=== PATIENT | male | born 1960 | race Hispanic/Latino ===

== ENCOUNTER 2019-01-03 11:00 | Inpatient (IN) | payer OTHER ==
[~2019-01-03] VITALS: Ht 185.4 cm; Wt 97.5 kg
--- OUTSIDE RECORDS SUMMARY | 2019-01-03 11:03 | XMS REPORT | Clinical Summary ---
Author Author JAMI [facility] Organization [facility] Address Unknown Phone Unavailable Care Team Providers Care Workers Compensation Paralegal Name Role Phone PCP Unavailable Allergies No Known Allergies Medications Not on file Active Problems Problem Noted Date Thyroid cancer 01/21/2016 Social History Date Tobacco Use Types Packs/Day Years Used Never Assessed Sex Assigned at Date Recorded Not on file Industry Job Start Date Occupation Not on file Not on file Not on file Travel End Travel History Travel Start No recent travel history available. Last Filed Vital Signs Not on file Plan of Treatment Not on file Results Not on fileafter 01/02/2018 Insurance Payer Benefit Subscriber ID Type Phone Address Plan / Group [employer] FED xxxxxxxxx O [phone] [address] [place] [address]
[2019-01-03] MEDS ORDERED: PIPER-TAZ 3.375 GM 50 ML IV ONE (11:30)
[2019-01-03] MEDS ORDERED: VITAMIN D250000 UNIT (11:46)
[2019-01-03] MEDS ORDERED: SYNTHROID125 MCG (11:46)
--- OUTSIDE RECORDS SUMMARY | 2019-01-03 11:48 | XMS REPORT | Clinical Summary ---
Author Author JAMI [facility] Organization [facility] Address Unknown Phone Unavailable Care Team Providers Care Heating Element Builder Name Role Phone PCP Unavailable Allergies No [...] [employer] FED xxxxxxxxx O [phone] [address] [place] [address]
[2019-01-03 11:53] LABS: BASOPHILS % 0.2 % (0.0-1.0); EOSINOPHILS # (AUTO) 0.1 (0.0-0.4); EOSINOPHILS % 0.5 % (0.0-6.0); HEMATOCRIT 43.5 % (38.2-49.6); HEMOGLOBIN 15.3 g/dL (14.0-18.0); LYMPHOCYTES # (AUTO) 1.1 (1.0-3.2); LYMPHOCYTES % 9.6 % (18.0-39.1); MEAN CORPUSCULAR HEMOGLOBIN 30.9 pg (28-32); MEAN CORPUSCULAR HGB CONC 35.2 g/dL (31-35); MEAN CORPUSCULAR VOLUME 87.9 fL (81-99); MONOCYTES # (AUTO) 0.7 (0.2-0.8); NEUTROPHILS # (AUTO) 9.5 (2.1-6.9); PLATELET COUNT 214 x10e3/uL (140-360); RED BLOOD COUNT 4.95 x10e6/uL (4.3-5.7); RED CELL DISTRIBUTION WIDTH 12.6 % (11.7-14.4)
[2019-01-03 12:08] LABS: ANION GAP 14.9 mmol/L (8-16); BLOOD UREA NITROGEN 14 mg/dL (7-26); BUN/CREATININE RATIO 16 (6-25); CARBON DIOXIDE 24 mmol/L (22-29); CHLORIDE 99 mmol/L (98-107); CREATININE, SERUM 0.88 mg/dL (0.72-1.25); EST GLOMERULAR FILTRATION RATE > 60 ML/MIN (60-); GLUCOSE 110 mg/dL (74-118); POTASSIUM 3.9 mmol/L (3.5-5.1); SODIUM 134 mmol/L (136-145)
[2019-01-03] MEDS: SODIUM CHLORIDE 0.9% 1000ML 1,000 ML IV SCH ×2 (12:10→20:11)
[2019-01-03] MEDS: PIPER-TAZ 3.375 GM 50 ML IV SCH ×2 (12:10→20:10)
--- NOTE | 2019-01-03 12:22 | NUR ---
PATIENT TO CT AT THIS TIME
[2019-01-03 12:30] LABS: CLARITY,URINE SL CLOUDY (CLEAR); COLOR,URINE YELLOW (YELLOW); LEUKOCYTE ESTERASE ,URINE NEGATIVE (NEGATIVE); NITRITE,URINE NEGATIVE (NEGATIVE); PROTEIN,URINE DIPSTICK TRACE (NEGATIVE)
[2019-01-03 12:31] LABS: BILIRUBIN,URINE NEGATIVE (NEGATIVE); KETONES,URINE 3+ (NEGATIVE); URINE UROBILINOGEN 0.2 mg/dL (0.2 - 1)
[2019-01-03 12:44] LABS: RBC,URINE 0-5 /HPF (0-5)
--- NOTE | 2019-01-03 13:06 | NUR ---
DR TERRY BEDSIDE TO SEE PATIENT AT THIS TIME - SURGERY DISCUSSED AND ALL QUESTIONS ANSWERED. DISCUSSED PLANNED PROCEDURE, ALL QUESTIONS ANSWERED, PATENT VOICED NO CONCERNS AT THIS TIME. CONSENT SIGNED AND PLACED ON CHART
[2019-01-03 13:27] VITALS: BP 141/79
--- NOTE | 2019-01-03 13:27 | NUR ---
Received pt from ER at this time. Pt admitted for scrotal abscess. Pt is aox4 and able to verbalize needs. Denies any pain at this time. Pt is NPO for procedure scheduled at 1600. Pt is ambulatory. Pt is afebrile.
--- NOTE | 2019-01-03 13:50 | Diagnostic Imaging Report ---
EXAMINATION: CT of the abdomen and pelvis with contrast. TECHNIQUE: Helical CT images of the abdomen and pelvis were performed from the lung bases to the lesser trochanters after the intravenous administration of 100 cc of Omnipaque 300 and the oral administration of none. Coronal and sagittal reformatted images were obtained.Dose modulation, iterative reconstruction, and/or weight based adjustment of the mA/kV was utilized to reduce the radiation dose to as low as reasonably achievable. COMPARISON: None. CLINICAL HISTORY:Abdominal pain, scrotal abscess DISCUSSION: ABDOMEN/PELVIS: LOWER THORAX:Unremarkable. HEPATOBILIARY: No focal hepatic lesions. No intra-or extrahepatic biliary ductal dilation. The gallbladder is normal. SPLEEN: No splenomegaly. PANCREAS: No focal masses or ductal dilatation. ADRENALS: No adrenal nodules. KIDNEYS/URETERS: No hydronephrosis, stones, or solid mass lesions. PELVIC ORGANS/BLADDER: The bladder is normal. PERITONEUM/RETROPERITONEUM: No free air or fluid. LYMPH NODES: Reactive lymph nodes. VESSELS: The celiac trunk,superior and inferior mesenteric and bilateral renal arteries are patent The portal, superior mesenteric and splenic veins are patent. GI TRACT: No obstruction. Colonic diverticulosis without inflammatory change. Appendix normal. BONES AND SOFT TISSUE: No bony destructive lesions. Skin thickening and inflammatory change throughout the scrotum. 3 cm fluid collection. IMPRESSION: Cellulitis and scrotal infection with 3 cm abscess. Diverticulosis without inflammatory change. Signed by: Dr. Pedro Cleaning M.D. on 01/03/2019 1:47 PM
[2019-01-03 13:56] VITALS: BP 141/79
[2019-01-03] MEDS ORDERED: MIDAZOLAM HCL 2 MG/2 ML VIAL ONE (14:15)
[2019-01-03] MEDS ORDERED: FENTANYL CITRATE/PF 100MCG/2 ML INJ ONE (14:15)
[2019-01-03] MEDS ORDERED: ACETAMINOPHEN 325 MG TAB PO PRN (14:15)
[2019-01-03] MEDS ORDERED: ONDANSETRON HCL INJ 2MG/ML 2ML 2 MG/ML VIAL IV PRN (14:15)
[2019-01-03] MEDS ORDERED: VANCOMYCIN 1GM/NS 250 ML 250 ML IV ONE (14:15)
[2019-01-03] MEDS ORDERED: IOPAMIDOL 370 MG/ML 200 ML INFUS..BTL INJ ONE (14:34)
[2019-01-03] MEDS ORDERED: SODIUM CHLORIDE 0.9% 50ML 50 ML ONE (14:34)
[2019-01-03] MEDS ORDERED: HYDROCODONE/APAP 10MG-325MG TAB PO PRN (17:15)
--- NOTE | 2019-01-03 17:30 | NUR ---
Pt returned from procedure with Dr. Vaughn at this time. Pt is awake aox4 and able to verbalize needs. Denies any pain at this time. Pt had I/D of scrotal abscess and was told it was packed iodoform packing and covered with 4x4 and he has on mesh underwear. No bleeding noted to scrotum at this time.
[2019-01-03] MEDS: DEXTROSE 5%/0.45% SOD CHL 1,000 ML IV SCH (17:48)
[2019-01-03 18:36] VITALS: BP 124/77
[2019-01-03] MEDS ORDERED: DEXAMETHASONE SOD PHOS INJ 4 MG/ML VIAL ONE (19:01)
[2019-01-03] MEDS ORDERED: ONDANSETRON HCL INJ 2MG/ML 2ML 2 MG/ML VIAL ONE (19:01)
[2019-01-03] MEDS ORDERED: PROPOFOL IV EMULSION 10 MG/ML 20 ML VIAL ONE (19:01)
[2019-01-03] MEDS ORDERED: SEVOFLURANE INHAL SOLN 250 ML PEN BTL ONE (19:01)
[2019-01-03] MEDS ORDERED: LIDOCAINE HCL 2% LOCAL INJ 5 ML SDV VIAL INJ ONE (19:01)
[2019-01-03 20:00] VITALS: BP 109/61
--- NOTE | 2019-01-03 20:28 | Consultation ---
DATE OF CONSULTATION: REASON FOR CONSULTATION: Scrotal abscess. HISTORY: A 58-year-old male who approximately four or five days ago also noticed a little pimple in his scrotum. He pinched it, tried to drain it, nothing came out and subsequent to that, he began to have increasing pain. He tried to squeeze it again, it got worse and shows up in the emergency room today with an abscess that begins on the ventral aspect of the penis at the penoscrotal junction, goes down the scrotum and goes through the septum towards the back of the scrotum and the base of the penis. This is on physical examination and also on CT scan that was done and that I had the opportunity to see. PAST MEDICAL HISTORY: Essentially negative, only has thyroid issues. MEDICATIONS: Synthroid. ALLERGIES TO DRUGS: None. SOCIAL HISTORY: , not sexually active, no children. PREVIOUS SURGERIES: None. PHYSICAL EXAMINATION: : Penis is uncircumcised. Testicles descended. No evidence of any inguinal hernias. RECTAL: There is no expansion of this abscess into the perineum. Rectum feels fine. Scrotum is as described above. IMPRESSION: Scrotal abscess. RECOMMENDATION: Drainage as soon as possible. The patient had to be started on Zosyn, has had blood cultures. I have talked to the patient about these abscesses, the good thing is he is not diabetic, but keep in mind that these abscesses when drained, they may need a second-look drainage and some of the skin may become necrotic and may need to be excised. He understands that at best, he will be in the hospital 3 to 4 days or longer. He understands that fully well because I explained it very clearly to him. I will be scheduling him for today and we will proceed with the treatment as planned. MD CHANO Aparicio/LILY /[id number]
--- NOTE | 2019-01-03 22:18 | Operative Report ---
DATE OF PROCEDURE: 01/03/2019 SURGEON: Jefferson Vaughn MD PREOPERATIVE DIAGNOSIS: Scrotal abscess. POSTOPERATIVE DIAGNOSIS: Scrotal abscess. OPERATION PERFORMED: Incision, drainage, culture and excision of necrotic and flagellation tissue. ANESTHESIOLOGIST: Dr. Campbell. ANESTHESIA: General. DESCRIPTION OF PROCEDURE: With the patient under satisfactory general anesthesia, the patient was placed in the supine position on the operating table. Genitalia and lower abdomen were prepped with Betadine soap and solution and draped in usual manner. A stab incision was made in the middle of the abscess, copious pus came out and it was cultured; aerobic, anaerobic, and for cocci. Copious irrigation was made with Betadine and sterile water. Necrotic skin was excised using a knife. Flagellation deep on the scrotum next to the left side of the penis was excised. Packing was done with quarter-inch iodoform. Three sutures were placed on the incision, the defect, to bring the edges of the corners together and allow the Iodoform to stay in place. Once that was done, fluffs were placed in together with a tiny mesh and the patient was taken to the recovery room in satisfactory condition. ESTIMATED BLOOD LOSS: 10-20 mL. COUNTS: Sponge, needle count, instrument were correct. The patient tolerated the procedure well and went to recovery room in satisfactory condition. I discussed with the family the findings and the expectations. Jefferson Vaughn MD RRG/MODL /[id number]
[2019-01-04] VITALS (8 sets, daily range): BP systolic 105–124; BP diastolic 59–75
[2019-01-04] MEDS: SODIUM CHLORIDE 0.9% 1000ML 1,000 ML IV SCH (03:24)
[2019-01-04] MEDS: DEXTROSE 5%/0.45% SOD CHL 1,000 ML IV SCH (03:33)
[2019-01-04] MEDS: PIPER-TAZ 3.375 GM 50 ML IV SCH ×3 (04:14→22:35)
[2019-01-04 05:32] LABS: BASOPHILS % 0.3 % (0.0-1.0); EOSINOPHILS # (AUTO) 0.1 (0.0-0.4); EOSINOPHILS % 1.1 % (0.0-6.0); HEMATOCRIT 38.6 % (38.2-49.6); HEMOGLOBIN 13.5 g/dL (14.0-18.0); LYMPHOCYTES # (AUTO) 1.4 (1.0-3.2); MEAN CORPUSCULAR HEMOGLOBIN 30.9 pg (28-32); MEAN CORPUSCULAR VOLUME 88.3 fL (81-99); MONOCYTES # (AUTO) 0.7 (0.2-0.8); MONOCYTES % 7.2 % (4.4-11.3); NEUTROPHILS # (AUTO) 7.2 (2.1-6.9); NEUTROPHILS % 76.2 % (38.7-80.0); PLATELET COUNT 207 x10e3/uL (140-360); RED BLOOD COUNT 4.37 x10e6/uL (4.3-5.7); RED CELL DISTRIBUTION WIDTH 12.5 % (11.7-14.4)
[2019-01-04 05:51] LABS: ALANINE AMINOTRANSFERASE 14 IU/L (0-55); ALBUMIN 2.9 g/dL (3.5-5.0); ALBUMIN/GLOBULIN RATIO 0.9 (0.8-2.0); ALKALINE PHOSPHATASE 63 IU/L (40-150); ANION GAP 9.9 mmol/L (8-16); BLOOD UREA NITROGEN 12 mg/dL (7-26); BUN/CREATININE RATIO 14 (6-25); CALCIUM 8.3 mg/dL (8.4-10.2); CARBON DIOXIDE 24 mmol/L (22-29); CHLORIDE 103 mmol/L (98-107); CREATININE, SERUM 0.84 mg/dL (0.72-1.25); EST GLOMERULAR FILTRATION RATE > 60 ML/MIN (60-); GLUCOSE 111 mg/dL (74-118); MAGNESIUM 2.3 MG/DL (1.3-2.1); PHOSPHORUS 3.3 MG/DL (2.3-4.7); POTASSIUM 3.9 mmol/L (3.5-5.1); SODIUM 133 mmol/L (136-145)
--- NOTE | 2019-01-04 06:38 | NUR ---
Patient alert and awake reports no pain. Is requesting to eat, but I told him to not have anything for breakfast until he talks to the DR. as he is having a procedure today. Otherwise, comfortable and denies pain, N/V. IV patent. Bed low, wheels locked and call light within reach.
--- NOTE | 2019-01-04 06:40 | NUR ---
The patient is laying in bed, sleeping but easy to arouse. IV patent, Dressing in scrotum in place with small drainage. Patient states he has no pain. Bed low, wheels locked and call light within reach.
--- NOTE | 2019-01-04 07:27 | NUR ---
PATIENT IN BED RESTING WITH EYES CLOSED, NO RESPIRATORY DISTRESS OBSERVED. DRESSING TO SROTUM WITH MODERATE AMOUNT OF SEROSANGUINEOUS DRAINAGE. BED IN LOWER POSITION, CALL LIGHT AT REACH.
--- NOTE | 2019-01-04 11:23 | NUR ---
CALL RECEIVED FROM DR TERRY REQUESTING SUPPLIES FOR BEDSIDE DRESSING CHANGE. SUPPLIES PROVIDED, AWAITING FOR MD. PATIENT AWARE.
--- NOTE | 2019-01-04 16:23 | NUR ---
DR TERRY IN TO SEE PATIENT, DRESSING CHANGED TO SCROTUM. PATIENT IN BED WITH CALL LIGHT AT REACH.
[2019-01-04] MEDS ORDERED: ONDANSETRON HCL 4 MG ORAL DISINTEGRATING TAB PO PRN ×2 (17:30)
[2019-01-04] MEDS: LACTOBACILLUS ACIDOPHILUS CAPSULE PO SCH (17:32)
[2019-01-05] VITALS (7 sets, daily range): BP systolic 101–111; BP diastolic 58–66
[2019-01-05] MEDS: PIPER-TAZ 3.375 GM 50 ML IV SCH (04:19)
--- NOTE | 2019-01-05 07:35 | NUR ---
Patient alert and responsive, no resp distress, VSS and OOB to bathroom with minimal assistance, call light within reach and will monitor.
[2019-01-05] MEDS: LEVOTHYROXINE SODIUM 125 MCG TAB PO SCH ×2 (08:00→09:00)
[2019-01-05] MEDS: LACTOBACILLUS ACIDOPHILUS CAPSULE PO SCH ×2 (08:30→16:36)
--- NOTE | 2019-01-05 10:31 | NUR ---
Patient alert and responsive, wound culture growing staph and strep and no resistance orgs noted, will expect details by tomorrow. Patient will be switched to Vanco by attending as aware of cultures.
[2019-01-05] MEDS: VANCOMYCIN 1GM/NS 250 ML 250 ML IV SCH ×2 (10:45→21:45)
[2019-01-05] MEDS ORDERED: SODIUM CHLORIDE 0.9% 250ML 250 ML ONE (15:30)
--- NOTE | 2019-01-05 21:10 | NUR ---
PATIENT IS ALERT AND SHOWS NO SIGNS OF DISTRESS. STILL AWAITING RESULTS OF WOUND CULTURE IT IS STILL PENDING. MEDICATION IS SWITCHED TO VANCOMYCIN, FAMILY IS IN ROOM. CALL LIGHT WITHIN EASY REACH, WILL CONTINUE TO MONITOR.
[2019-01-06 00:35] VITALS: BP 140/63
[2019-01-06 05:13] VITALS: BP 156/75
--- NOTE | 2019-01-06 07:29 | NUR ---
PATIENT IN BED RESTING WITH NO RESPIRATORY DISTRESS. DRESSING TO SCROTUM WITH SMALL AMOUNT OF SEROSANGUINEOUS DRAINAGE. DENIED PAIN AT THIS TIME. BED IN LOWER POSITION, CALL LIGHT AT REACH.
[2019-01-06 07:40] VITALS: BP 106/57
[2019-01-06 07:47] VITALS: BP 106/57
[2019-01-06] MEDS: LEVOTHYROXINE SODIUM 125 MCG TAB PO SCH (09:13)
[2019-01-06] MEDS: LACTOBACILLUS ACIDOPHILUS CAPSULE PO SCH (09:13)
[2019-01-06] MEDS: VANCOMYCIN 1GM/NS 250 ML 250 ML IV SCH (10:45)
--- NOTE | 2019-01-06 11:22 | NUR ---
DRESSING CHANGED TO SCROTUM BY MD. ALL PERSONAL ITEMS CLOSE TO PATIENT. CALL LIGHT AT REACH.
[2019-01-06 11:34] VITALS: BP 115/55
--- NOTE | 2019-01-06 12:02 | Progress Note ---
DATE: 01/06/2019 Today, the patient is doing well. Has minimal discomfort. Has had no fever. His vital signs are stable. He has been tolerating diet well. Today on examination, the swelling on the penis and scrotum has gone down considerably. The dressing has minimal drainage, although the iodoform packing is soupy and wet. The patient does have some discomfort. Now the incision is healing well and this is progressively getting shallower, I believe that we will probably have to pack him a couple of more days and that will be sufficient. I have discussed with the patient to come back to my office tomorrow morning to do a repacking and cleaning. I gave the patient some Bactrim to take twice a day since we have the culture report that says is sensitive to Bactrim. He has a Staph aureus infection. I also provided the patient with tramadol and discussed the case with Dr. Carpenter who will discharge the patient today. He can have a regular diet and activity at home. He may not go to work until this incision has closed. MD CHANO Aparicio/LILY /[id number]
[2019-01-06] MEDS ORDERED: BACTRIM DS TAB1 EACH PO (14:40)
[2019-01-06] MEDS ORDERED: ULTRAM 50MG50 MG PO (14:42)
--- NOTE | 2019-01-06 15:08 | NUR ---
PATIENT DISCHARGED HOME. DISCHARGE INSTRUCTIONS, PRESCRIPTIONS, AND FOLLOW UP GIVEN TO PATIENT, HE VERBALIZED UNDERSTANDING. IV TO LEFT AC REMOVED WITH TIP INTACT. ALL PERSONAL ITEMS TAKEN WITH PATIENT. REFUSED WHEEL CHAIR, BUT WAS ACCOMPANIED TO FRONT LOBBY BY HOSPITAL STAFF IN STABLE CONDITION.
== END 2019-01-06 15:09 | disposition home or self-care (01) | DRG 717 ==
LOC: ER 11:00 → ERHOLD 11:24 → MED/SURG3 13:29
PROVIDERS: ADMIT Internal Medicine; ATTEND Internal Medicine
PROC: 0VB50ZZ Excision of Scrotum, Open Approach (ICD-10-PCS; principal; 2019-01-03 15:45)
DX: N49.2 Inflammatory disorders of scrotum (principal); E87.1 Hypo-osmolality and hyponatremia; N48.22 Cellulitis of corpus cavernosum and penis; B95.61 Methicillin susceptible Staphylococcus aureus infection as the cause of diseases classified elsewhere; B95.0 Streptococcus, group A, as the cause of diseases classified elsewhere; E03.9 Hypothyroidism, unspecified; Z85.850 Personal history of malignant neoplasm of thyroid
CPT/HCPCS: 36415; 74177; 80048; 80053; 81001; 83605; 83735; 84100; 84443; 85025; 87040; 87071; 87075; 87086; 87186; 87205; 88302; 88304; J1100; J2001; J2250; J2405; J2543; J3370; J7030; J7050; Q9967

== ENCOUNTER 2021-12-01 19:56 | Emergency (ER) | payer BC, OTHER ==
[~2021-12-01] VITALS: Ht 185.4 cm; Wt 97.5 kg
[~2021-12-01 19:56] MED LIST: BACTRIM DS TAB1 EACH PO; SYNTHROID125 MCG; ULTRAM 50MG50 MG PO; VITAMIN D250000 UNIT
[2021-12-01] MEDS ORDERED: AMOXICILLIN/CLAVULANATE K 875 MG TAB PO STA (20:41)
[2021-12-01] MEDS ORDERED: HYDROCODONE/APAP 5MG-325MG TAB PO STA (20:42)
[2021-12-01] MEDS ORDERED: AUGMENTIN 500-1 EACH PO (21:50)
[2021-12-01] MEDS ORDERED: ACETAMINOPHEN-1 EAC4 PO (21:50)
[2021-12-01] MEDS ORDERED: Morphine 4mg Syringe 4 MG/ML INJ IM STA (23:35)
[2021-12-02 00:37] VITALS: BP 132/80
== END 2021-12-02 00:35 | disposition home or self-care (01) ==
LOC: ER 20:18
DX: S52.292B Other fracture of shaft of left ulna, initial encounter for open fracture type I or II (principal); S81.851A Open bite, right lower leg, initial encounter; W54.0XXA Bitten by dog, initial encounter; Y93.89 Activity, other specified; Y92.89 Other specified places as the place of occurrence of the external cause; E03.9 Hypothyroidism, unspecified; Z85.850 Personal history of malignant neoplasm of thyroid
CPT/HCPCS: 29125; 73090; 73590; 99284; J2270